=== PATIENT | male | born 1995 | race African-American/Black ===

== ENCOUNTER 2016-06-22 | Emergency (ER) | payer OTHER ==
--- NOTE | 2016-06-22 12:43 | ED ---
General Adult HPI - General Chief complaint: GI Bleed Stated complaint: hemmeroids Time Seen by Provider: 06/22/16 12:09 Source: patient, RN notes reviewed Mode of arrival: ambulatory Limitations: no limitations - History of Present Illness Initial comments: Chief complaint history of present illness this is a 20-year-old male with a complaint of a hemorrhoid for multiple years. He reports is uncomfortable. No bleeding. - Related Data Home Medications Medication Instructions Recorded Confirmed No Known Home Medications [No 06/22/16 06/22/16 Known Home Medications] Allergies Allergy/AdvReac Type Severity Reaction Status Date / Time No Known Allergies Allergy Verified 06/22/16 12:14 Review of Systems ROS Statement: Those systems with pertinent positive or pertinent negative responses have been documented in the HPI. Review of systems no headache chest pain shortness breath GI or problems other than his hemorrhoids. All systems are reviewed. Patient denies any medical problems in the past. Denies any surgeries. Denies any significant family history medical problems. Denies any ALLERGIES. He does smoke strongly encouraged stop drinks alcohol. ROS Other: All systems not noted in ROS Statement are negative. Past Medical History Past Medical History: No Reported History History of Any Multi-Drug Resistant Organisms: None Reported Past Surgical History: No Surgical Hx Reported Past Psychological History: No Psychological Hx Reported Smoking Status: Current every day smoker Past Alcohol Use History: Occasional Past Drug Use History: Marijuana General Exam - General Exam Comments Initial Comments: General: The patient is awake and alert, in no distress, and does not appear acutely ill. Complains of hemorrhoidal pain. Ongoing for many years. He reports normally the hemorrhoid goes back up. Staying down now. Vital signs temp 97.6 pulse 66 respiratory rate 18 pulse ox on percent room air blood pressure 122/74 Eye: Pupils are equal, round and reactive to light, extra-ocular movements are intact ; there is normal conjunctiva bilaterally. No signs of icterus. Ears, nose, mouth and throat: There are moist mucous membranes and no oral lesions. Neck: The neck is supple,. Cardiovascular: There is a regular rate and rhythm. No murmur, rub or gallop is appreciated. Respiratory: Lungs are clear to auscultation, respirations are non-labored, breath sounds are equal. No wheezes, stridor, rales, or rhonchi. Gastrointestinal: Soft, non-distended, non-tender abdomen without masses or organomegaly noted. There is no rebound or guarding present. No CVA tenderness. Bowel sounds are unremarkable. Examination of the anus findings a normal-appearing external hemorrhoid no bleeding. Back: No complaint of back pain Musculoskeletal: Full range of motion of upper and lower extremities without numbness or tingling. Limitations: no limitations Course Vital Signs 06/22/16 11:47 Temperature 97.6 F Pulse Rate 66 Respiratory 18 Rate Blood Pressure 127/74 O2 Sat by Pulse 100 Oximetry Medical Decision Making - Medical Decision Making Patient has no external hemorrhoid. Nonbleeding. He is using topical creams advised to continue with these plus witch [place]. He'll be given a referral to on-call general surgeon. Disposition Clinical Impression: Hemorrhoid Disposition: HOME SELF-CARE Condition: Good Instructions: Astringent (On the skin), Hemorrhoids (ED) Additional Instructions: Continue with [id number] topical creams and witch [place]. Follow-up with family physician in general surgeon Referrals: None,Stated [Primary Care Provider] - 1-2 days Roldan Lau MD [REFERRING] - 1-2 days Marichuy Wilcox MD [STAFF PHYSICIAN] - 1-2 days Time of Disposition: 12:42
== END 2016-06-22 12:57 | disposition home or self-care (01) ==
CPT/HCPCS: 99284